=== PATIENT | female | born 1960 | race Caucasian/White ===

== ENCOUNTER 2017-02-07 11:32 | Observation (INO) | payer BC ==
[2017-02-07] MEDS ORDERED: NS 1,000 ML IV ONE (12:31)
[2017-02-07 12:40] LABS: COLOR YELLOW; LEUKOCYTE ESTERASE,URINE NEGATIVE (NEGATIVE); NITRITE,URINE NEGATIVE (NEGATIVE)
[2017-02-07] MEDS ORDERED: ONDANSETRON 4 MG/2 ML VIAL IVP ONE (12:44)
[2017-02-07] MEDS ORDERED: HYDROmorphONE/DILAUDID 1 MG/ML SYR IVP ONE ×2 (12:44→16:32)
[2017-02-07 12:46] LABS: % IMMATURE GRANULYOCYTES 0.3 % (0.0-1.1); ABSOLUTE IMMATURE GRANULOCYTES 0.02 10^3/uL (0.00-0.10); ADD DIFF? NO; ADD MORPH? NO; ADD SCAN? NO; ATYPICAL LYMPHOCYTE FLAG 10 (0-99); FRAGMENT RBC FLAG 0 (0-99); HEMATOCRIT 39.9 % (38.0-47.0); HEMOGLOBIN 13.7 g/dL (12.6-16.3); LEFT SHIFT FLG 0 (0-99); LIPEMIA HEMOLYSIS FLAG 90 (0-99); MEAN CELL HEMOGLOBIN 32.7 pg (27.9-34.1); MEAN CELL HEMOGLOBIN CONCENTR. 34.3 g/dL (32.4-36.7); MEAN CELL VOLUME 95.2 fL (81.5-99.8); MEAN PLATELET VOLUME 9.6 fL (8.7-11.7); PLATELET CLUMPS FLAG 0 (0-99); PLATELET COUNT 317 10^3/uL (150-400); RED BLOOD CELL COUNT 4.19 10^6/uL (4.18-5.33); RED CELL DISTRIBUTION WIDTH 13.2 % (11.5-15.2)
[2017-02-07 13:00] LABS: ANION GAP 10 mEq/L (8-16); CALCIUM 9.4 mg/dL (8.5-10.4); CARBON DIOXIDE 26 mEq/l (22-31); CHLORIDE 106 mEq/L (97-110); CREATININE 0.8 mg/dL (0.6-1.0); GLOMERULAR FILTRATION RATE > 60; GLUCOSE 63 mg/dL (70-100); SODIUM 142 mEq/L (134-144)
--- NOTE | 2017-02-07 13:01 | EDPHY ---
H & P Time Seen by Provider: 02/07/17 12:18 HPI/ROS: CHIEF COMPLAINT: Abdominal pain HISTORY OF PRESENT ILLNESS: 56-year-old female presents to the emergency department by private vehicle complaining of severe abdominal pain to left side of her abdomen since yesterday. She denies any known trauma or injury. She denies nausea, vomiting or diarrhea. She has never had pain like this in the past. Denies urinary symptoms. She had a normal bowel movement this morning. Denies melena or blood in her stool. Denies chest pain or difficulty breathing. REVIEW OF SYSTEMS: Constitutional: No fever, no chills. Eyes: No double or blurry vision. ENT: No sore throat. Respiratory: No cough, no shortness of breath. Cardiac: No chest pain. Gastrointestinal: Abdominal pain as above, no vomiting or diarrhea. Genitourinary: No dysuria. Musculoskeletal: No neck or back pain. Skin: No rashes. Neurological: No headache. Past Medical/Surgical History: Pancreatic insufficiency, cholecystectomy, orthopedic surgery Social History: from [place] Smoking Status: Former smoker Physical Exam: General Appearance: Alert, no distress. Afebrile. Eyes: Pupils equal and round. Extraocular motions are all intact. ENT: Mouth: Mucous membranes moist. Respiratory: No wheezing, rhonchi, or rales, lungs are clear to auscultation. Cardiovascular: Regular rate and rhythm. Gastrointestinal: Abdomen is soft. Slightly distended. Patient has tenderness with palpation in the left lower quadrant as well as in the left upper quadrant of the abdomen. There is mild rebound tenderness. No guarding. No CVA tenderness bilaterally. Neurological: Alert and oriented x 3, cranial nerves II through XII grossly intact Skin: Warm and dry, no rashes. Musculoskeletal: Nontender to palpate along the cervical, thoracic or lumbar spine. Neck is supple. Extremities: Full range of motion and no peripheral edema. Psychiatric: Patient is oriented X 3, there is no agitation. Constitutional: Initial Vital Signs Temperature (C) 36.6 C 02/07/17 11:37 Heart Rate 90 02/07/17 11:37 Respiratory Rate 16 02/07/17 11:37 Blood Pressure 107/71 02/07/17 11:37 O2 Sat (%) 96 02/07/17 11:37 O2 Delivery Mode Room Air O2 (L/minute) 2 Allergies/Adverse Reactions: No Known Allergies Allergy (Verified 02/07/17 11:40) Home Medications: Medication Instructions Recorded NK [No Known Home Meds] 02/07/17 Medical Decision Making - Diagnostics Imaging: Imaging Impressions Abdomen CT 02/07/17 13:18 Impression: 1. Epiploic appendagitis involving the descending colon near the left iliac crest. 2. No free fluid, abscess, lymphadenopathy or mass. 3. Mild biliary dilation is likely the patient's postcholecystectomy baseline. Findings discussed with Emergency Department physician, Mary Cornelius PA-C on February 07, 2017 at 1418 hours. ED Course/Re-evaluation: 56-year-old female with left-sided abdominal pain. Patient feels distension in her abdomen. No vomiting or diarrhea. No fevers or chills. I discussed the pros and cons of CT imaging of the abdomen and pelvis including radiation exposure the patient agrees. CT imaging of the abdomen and pelvis reveals and epiploic appendagitis. No evidence of perforation. The patient required IV Dilaudid initially and then she was given 30 mg of IV Toradol without relief. She was given additional IV Dilaudid. Patient continued to have ongoing abdominal pain. She will be admitted to the hospitalist. I spoke with Dr. Chetan Cabrera who was on-call for General surgery who reviewed the patient's CT scan. He did not feel that the patient required any surgical intervention. He feels that the patient can be admitted to the hospitalist if she continues to have ongoing pain for pain control. Case was discussed with Dr. Tayler Sagastume, supervising physician, who did not directly evaluate the patient but agrees with treatment and plan. Differential Diagnosis: Including but not limited to acute appendicitis, diverticulitis, perforated diverticulum, bowel obstruction, carcinoma, epiploic appendagitis - Data Points Laboratory Results: Laboratory Results 02/07/17 12:26 02/07/17 12:26 02/07/17 02/07/17 02/07/17 12:26 12:26 12:25 WBC 6.15 10^3/uL 10^3/uL (3.80-9.50) RBC 4.19 10^6/uL 10^6/uL (4.18-5.33) Hgb 13.7 g/dL g/dL (12.6-16.3) Hct 39.9 % % (38.0-47.0) MCV 95.2 fL fL (81.5-99.8) MCH 32.7 pg pg (27.9-34.1) MCHC 34.3 g/dL g/dL (32.4-36.7) RDW 13.2 % % (11.5-15.2) Plt Count 317 10^3/uL 10^3/uL (150-400) MPV 9.6 fL fL (8.7-11.7) Neut % (Auto) 49.2 % % (39.3-74.2) Lymph % (Auto) 38.0 % % (15.0-45.0) [place] % (Auto) 8.6 % % (4.5-13.0) Eos % (Auto) 2.8 % % (0.6-7.6) Baso % (Auto) 1.1 % % (0.3-1.7) Nucleat RBC Rel Count 0.0 % % (0.0-0.2) Absolute Neuts (auto) 3.02 10^3/uL 10^3/uL (1.70-6.50) Absolute Lymphs (auto) 2.34 10^3/uL 10^3/uL (1.00-3.00) Absolute Monos (auto) 0.53 10^3/uL 10^3/uL (0.30-0.80) Absolute Eos (auto) 0.17 10^3/uL 10^3/uL (0.03-0.40) Absolute Basos (auto) 0.07 10^3/uL 10^3/uL (0.02-0.10) Absolute Nucleated RBC 0.00 10^3/uL 10^3/uL (0-0.01) Immature Gran % 0.3 % % (0.0-1.1) Immature Gran # 0.02 10^3/uL 10^3/uL (0.00-0.10) Sodium 142 mEq/L mEq/L (134-144) Potassium 4.0 mEq/L mEq/L (3.5-5.2) Chloride 106 mEq/L mEq/L (97-110) Carbon Dioxide 26 mEq/l mEq/l (22-31) Anion Gap 10 mEq/L mEq/L (8-16) BUN 9 mg/dL mg/dL (7-23) Creatinine 0.8 mg/dL mg/dL (0.6-1.0) Estimated GFR > 60 Glucose 63 mg/dL L mg/dL (70-100) Calcium 9.4 mg/dL mg/dL (8.5-10.4) Urine Color YELLOW Urine Appearance HAZY Urine pH 7.0 (5.0-7.5) Ur Specific [place] 1.004 (1.002-1.030) Urine Protein NEGATIVE (NEGATIVE) Urine Ketones NEGATIVE (NEGATIVE) Urine Blood NEGATIVE (NEGATIVE) Urine Nitrate NEGATIVE (NEGATIVE) Urine Bilirubin NEGATIVE (NEGATIVE) Urine Urobilinogen NEGATIVE EU EU (0.2-1.0) Ur Leukocyte Esterase NEGATIVE (NEGATIVE) Ur Culture Indicated? NOT INDICATED (NI) Urine Glucose NEGATIVE (NEGATIVE) Medications Given: Discontinued Medications Hydromorphone HCl (Dilaudid) 0.5 mg IVP EDNOW ONE Stop: 02/07/17 12:45 Last Admin: 02/07/17 12:53 Dose: 0.5 mg Hydromorphone HCl (Dilaudid) 0.5 mg IVP EDNOW ONE Stop: 02/07/17 16:33 Last Admin: 02/07/17 16:43 Dose: 0.5 mg Sodium Chloride (Ns) 1,000 mls @ 0 mls/hr IV ONCE ONE PRN Reason: Wide Open Stop: 02/07/17 12:32 Last Admin: 02/07/17 12:32 Dose: 1,000 mls Ketorolac Tromethamine (Toradol) 30 mg IVP EDNOW ONE Stop: 02/07/17 14:41 Last Admin: 02/07/17 15:04 Dose: 30 mg Ondansetron HCl (Zofran) 4 mg IVP EDNOW ONE Stop: 02/07/17 12:45 Last Admin: 02/07/17 12:53 Dose: 4 mg Departure - Departure Disposition: [facility] Inpatient Acute Clinical Impression: Abdominal pain Qualifiers: Abdominal location: left lower quadrant Qualified Code(s): R10.32 - Left lower quadrant pain Condition: Good
[2017-02-07] MEDS ORDERED: IOPAMIDOL (ISOVUE-300) 100 ML BTL IV ONE (13:23)
[2017-02-07] MEDS ORDERED: KETOROLAC 30 MG/1 ML SDV IVP ONE (14:40)
[2017-02-07] MEDS ORDERED: ACETAMINOPHEN 325 MG TAB PO PRN (17:30)
[2017-02-07] MEDS ORDERED: ONDANSETRON DISINTEGRATING 4 MG TAB PO PRN (17:30)
[2017-02-07] MEDS ORDERED: ONDANSETRON 4 MG/2 ML VIAL IVP PRN (17:30)
[2017-02-07] MEDS ORDERED: KETOROLAC 30 MG/1 ML SDV IVP PRN (17:30)
[2017-02-07] MEDS ORDERED: HYDROmorphONE/DILAUDID 2 MG TAB ONE (18:38)
[2017-02-07] MEDS ORDERED: HYDROmorphONE/DILAUDID 1 MG/ML SYR IVP PRN (18:39)
[2017-02-07] MEDS: HYDROmorphONE/DILAUDID 2 MG TAB PO PRN (18:42)
[2017-02-07 19:07] LABS: ALBUMIN 4.1 g/dL (3.5-5.0); BILIRUBIN,TOTAL 0.5 mg/dL (0.1-1.4); BILIRUBIN-CONJUGATED 0.2 mg/dL (0.0-0.5); BILIRUBIN-UNCONJUGATED 0.3 mg/dL (0.0-1.1); TOTAL PROTEIN 7.1 g/dL (6.3-8.2)
--- NOTE | 2017-02-07 19:15 | GHP ---
[f rep st] HISTORY AND PHYSICAL DATE OF ADMISSION: 02/07/2017 CHIEF COMPLAINT: Abdominal pain. HISTORY OF PRESENT ILLNESS: The patient is a 56-year-old female, history of esophageal spasm, presenting with acute abdominal pain. She says the pain started yesterday morning, and she thought it may be related to yoga or maybe ovarian cyst. It was sharp in nature diffusely, but more on the left side. She reports increased pressure throughout the entire abdomen, and has had intermittent distention for the past month. She does have constipation intermittently, had a normal BM today. Denies fevers, chills, sweats. No nausea, vomiting, diarrhea. She was recently treated for a sinus infection with Keflex and prednisone. REVIEW OF SYSTEMS: A complete 10-point review of systems, negative except as noted in HPI. PAST MEDICAL HISTORY: Esophageal spasms. Recent sinus infection. PAST SURGICAL HISTORY: Ectopic . Finger surgery. Cholecystectomy. SOCIAL HISTORY: Lives in [place], but [place] [address]. Occasional alcohol. No tobacco or illicits. FAMILY HISTORY: Grandmother had venous thrombosis in her abdomen. Mother with diverticulitis. ALLERGIES: No known drug allergies. MEDICATIONS: Vitamins. PHYSICAL EXAM: VITAL SIGNS: Temperature 36.6, blood pressure 107/71, heart rate 80s, respiration 18, 95% on room air. GENERAL: The patient is lying in bed. Mildly guarding secondary to pain meds. No acute distress. HEENT: PERRLA. EOMI. Dry mucous membranes. CV: Regular rate and rhythm. No murmurs , gallops, or rubs. LUNGS: Clear to auscultation. ABDOMEN: Soft, mildly distended. Significant tenderness left lower quadrant with guarding. No rebound. Positive bowel sounds. : No suprapubic tenderness. MUSCULOSKELETAL: 5/5 upper and lower extremity strength. NEURO: 2 through 12 intact. PSYCH: Alert and oriented x3. LABS: WBC 6.1, hemoglobin 13, hematocrit 39, platelets 317, sodium 142, potassium 4, chloride 106, carbon dioxide 26, BUN 9, creatinine 0.8, glucose 63 , calcium 9. CT: Epiploic appendagitis involving the descending colon near the left iliac crest. No free fluid, abscess, or lymphadenopathy. Mild biliary dilatation is likely. Patient is post cholecystectomy baseline. ASSESSMENT/PLAN: 1. Acute abdominal pain secondary to epiploic appendagitis: There is no evidence of abscess or mass. Will admit for pain control, IV fluids. Dr. Cabrera reviewed imaging; no surgical intervention needed. Admit for pain control. 2. Diet: Clears, advance as tolerated. 3. Deep vein thrombosis prophylaxis: Low risk. DISPOSITION: Patient warrants inpatient admission for acute pain control. /[id number]/MODL and [id number]/MODL [facility]
[2017-02-07] MEDS: FAMOTIDINE 20 MG/NACL 50 ML IV SCH (20:41)
[2017-02-07] MEDS: NS 1,000 ML IV SCH (20:41)
[2017-02-07] MEDS ORDERED: diphenhydrAMINE 25 MG CAP PO PRN (22:21)
[2017-02-07] MEDS ORDERED: LIDOCAINE 2% VISCOUS 15 ML UDCUP PO ONE (22:22)
[2017-02-07] MEDS ORDERED: MAG HYDROX/AL HYDROX/SIMETH 30 ML UDCUP PO ONE (22:22)
[2017-02-07] MEDS ORDERED: HYOSCYAMINE SULFATE 0.125 MG TAB PO ONE (22:22)
[2017-02-07] MEDS ORDERED: HYOSCYAMINE SULFATE 0.125 MG TAB PO PRN (23:15)
[2017-02-07] MEDS ORDERED: LIDOCAINE 2% VISCOUS 15 ML UDCUP PO PRN (23:15)
[2017-02-07] MEDS ORDERED: MAG HYDROX/AL HYDROX/SIMETH 30 ML UDCUP PO PRN (23:15)
[2017-02-08] MEDS: HYDROmorphONE/DILAUDID 2 MG TAB PO PRN (02:18)
[2017-02-08] MEDS: NS 1,000 ML IV SCH (06:02)
[2017-02-08] MEDS: FAMOTIDINE 20 MG/NACL 50 ML IV SCH (08:09)
[2017-02-08 08:17] VITALS: RESP 18
[2017-02-08] MEDS ORDERED: SUMAtriptan 50 MG TAB PO ONE (08:48)
[2017-02-08] MEDS ORDERED: SUMAtriptan 25 MG TAB PO PRN (08:48)
[2017-02-08] MEDS ORDERED: Herbals/Supplements -Info Only PO SCH (09:00)
[2017-02-08 10:38] LABS: ADD DIFF? NO; ADD MORPH? NO; ADD SCAN? NO; ATYPICAL LYMPHOCYTE FLAG 10 (0-99); FRAGMENT RBC FLAG 0 (0-99); HEMATOCRIT 37.1 % (38.0-47.0); HEMOGLOBIN 12.3 g/dL (12.6-16.3); LEFT SHIFT FLG 0 (0-99); LIPEMIA HEMOLYSIS FLAG 80 (0-99); MEAN CELL HEMOGLOBIN 32.2 pg (27.9-34.1); MEAN CELL HEMOGLOBIN CONCENTR. 33.2 g/dL (32.4-36.7); MEAN CELL VOLUME 97.1 fL (81.5-99.8); MEAN PLATELET VOLUME 9.9 fL (8.7-11.7); PLATELET CLUMPS FLAG 20 (0-99); PLATELET COUNT 252 10^3/uL (150-400); RED BLOOD CELL COUNT 3.82 10^6/uL (4.18-5.33); RED CELL DISTRIBUTION WIDTH 13.3 % (11.5-15.2)
[2017-02-08 10:50] LABS: INR 1.1 (0.83-1.16); PROTIME(PATIENT) 14.1 SEC (12.0-15.0)
[2017-02-08 11:13] LABS: ANION GAP 6 mEq/L (8-16); CARBON DIOXIDE 22 mEq/l (22-31); CHLORIDE 113 mEq/L (97-110); CREATININE 0.7 mg/dL (0.6-1.0); GLOMERULAR FILTRATION RATE > 60; GLUCOSE 82 mg/dL (70-100); POTASSIUM 4.2 mEq/L (3.5-5.2); SODIUM 141 mEq/L (134-144)
--- NOTE | 2017-02-08 15:37 | PDDCSUM ---
Discharge Summary Discharge Summary: DISCHARGE SUMMARY FOLLOW-UP ITEMS: Mental health and potentially GI referral through PCP's office DATE OF ADMISSION: 02/07/2017 DATE OF DISCHARGE: 02/08/2017 DISCHARGE DIAGNOSES: 1. Acute abdominal pain 2. Epiploic appendagitis 3. Suspected irritable bowel syndrome CONSULTATIONS: [place] with General surgery PROCEDURES / IMAGING: Abdominal CT demonstrating fat necrosis in the right lower quadrant CHIEF COMPLAINT: Acute abdominal pain SUBJECTIVE: Patient is feeling well at time of discharge, she is having mild nausea PHYSICAL EXAM ON DISCHARGE: Systolic blood pressure is 120, heart rate 60, afebrile overnight, satting well on room air, abdomen is soft mildly tender to deep palpation on the left lower quadrant, bowel sounds are present, flat affect, anxious, good insight LABS ON DISCHARGE: White blood cell count 3500, hemoglobin 12.3, platelets [id number], creatinine 0.7, potassium 4.2, glucose 82, liver panel unremarkable, lipase normal HOSPITAL COURSE BY PROBLEM: 1. Acute abdominal pain. Patient presented with abdominal pain and oral intolerance, requiring supportive care with IV fluids, pain medications, antiemetics. The patient responded well to supportive care and she is currently symptom controlled. Most likely cause of her symptoms is irritable bowel syndrome which will be further discussed below. 2. Epiploic appendagitis. Patient has evidence of fat necrosis in the right lower quadrant on abdominal CT, and I have discussed this with Dr. Cabrera from General surgery. Reports that this is idiopathic and may or may not be the cause of her abdominal symptoms. She does not currently have any positive infectious markers and does not require any intervention for this issue. I also question whether this is the cause of her abdominal symptoms and I believe it may be an incidental finding. 3. Suspected irritable bowel syndrome. The patient endorses significant stressors in her life and believes that her abdominal symptoms become exacerbated with elevated stress levels. She reports that she has fluctuating levels of constipation for which she has to work diligently with stool softeners and laxatives. She does not see a provider formally for this issue but I suspect that she may have a irritable bowel syndrome component consequently I am ordering as needed Bentyl for control of her abdominal pain. She would like to control her nausea with as needed Phenergan and Zofran. I recommended that she remain diligent regarding her bowel movements and utilize laxative agents to provoke at least 1 bowel movement daily. I have also recommended that she establish primary medical care here in [facility] so that she can continue to work on this issue with a medically trained provider and also receive referral to appropriate mental health provider of her choosing as well as potential ointment mill tender if the symptoms become more pervasive. The patient has good insight into her physical symptoms as well as her connection with her stress levels and she seems amenable to receiving care. DISCHARGE MEDICATIONS: Please see official discharge medication reconciliation sheet in chart , Bentyl 10-20 mg as needed, Phenergan as needed, Zofran as needed. DISCHARGE INSTRUCTIONS: Patient should establish care with Dr. Felipe Neal.
[2017-02-08 16:22] VITALS: BP 146/94; PULSE 78; TEMP 98.5; O2SAT 97
[2017-02-08] MEDS ORDERED: FAMOTIDINE 20 MG TAB PO SCH (21:00)
== END 2017-02-08 18:41 | disposition home or self-care (01) ==
LOC: INTOOBSV 17:14 → OBSVTOIN 17:14 → F1N 18:58
PROVIDERS: ADMIT Internal Medicine; ATTEND Internal Medicine
DX: R10.32 Left lower quadrant pain (principal); K63.89 Other specified diseases of intestine; Q43.8 Other specified congenital malformations of intestine
CPT/HCPCS: 74177; 96374; 96375; 96376; 99285; G0378; J1170; J1885; J2405; Q9967

== ENCOUNTER 2017-03-27 16:57 | Emergency (ER) | payer BC ==
--- NOTE | 2017-03-27 18:02 | EDPHY ---
H & P Time Seen by Provider: 03/27/17 17:58 HPI/ROS: HPI:48-year-old female presents to emergency department with chief concern left great toe discomfort that onset this morning. Had a [place] yesterday at a resort in [facility] and a massage therapist " pulled her by her toes 1 at a time, lifting her entire leg off of the bed." had minimal pain at that time, pain increased over the night, awoke with difficulty ambulating. No fever, chills, skin trauma, nausea, vomiting, other joint swelling or pain. No personal or family history of gout.Does not tolerate NSAIDs. Brought tramadol at the airport in [place] and has been using with some improvement. ROS:10 point review of systems is negative other than as stated in HPI Smoking Status: Former smoker Physical Exam: Vital signs stable, reviewed by me General: Awake, alert, calm, cooperative. No acute distress. Head: Normalocephalic. Atraumatic. EENT: PERRLA. EOMI. Neck: Supple, nontender. No midline tenderness, full ROM. Respiratory: Breathing unlabored. CV: Chest nontender, atraumatic. Distal pulses 2+. Brisk cap refill all extremities. GI: Deferred Neuro: Alert. Oriented x 3. Sensation intact all extremities. Skin: Skin warm, dry, intact. No ecchymosis, abrasions, or lacerations. Extremities: No discomfort to palpation of the left hip, knee, leg, ankle. Full ROM. bunions present bilaterally to the medial 1st MTPJ days. Discomfort with mild swelling and without significant warmth of the left 1st MTPJ. No discomfort of the proximal or distal phalanx of the left great toe. Full range of motion. Constitutional: Initial Vital Signs Temperature (C) 36.9 C 03/27/17 17:00 Heart Rate 72 03/27/17 17:00 Respiratory Rate 18 03/27/17 17:00 Blood Pressure 120/80 03/27/17 17:00 O2 Sat (%) 99 03/27/17 17:00 O2 Delivery Mode Room Air Allergies/Adverse Reactions: No Known Allergies Allergy (Verified 03/27/17 17:00) Home Medications: Medication Instructions Recorded Tramadol HCl 50 mg PO 12 #0 tablet 03/27/17 traMADol [Ultram 50 mg (*)] 50 mg PO Q4 03/27/17 Medical Decision Making - Diagnostics Imaging Results: Imaging Impressions Toe X-Ray 03/27/17 17:07 Impression: Moderate left first MTP joint osteoarthritis, otherwise negative. ED Course/Re-evaluation: 56-year-old female presents to emergency department with discomfort of the MTPJ of the left the great toe. Onset after a massage where the massage therapist manipulated her toes, lifting her entire leg off the bed. Awoke with difficulty ambulating. Afebrile. No other joint pain. No joint erythema , swelling, or warmth. While gout is in the differential, she has no personal or family history of gout. The MTPJ is not significantly warm. Swelling and erythema are minimal. X-ray significant for osteoarthritis. She will continue using Tylenol and tramadol, and follow up with primary care for recheck. Given postop shoe and crutches as she has difficulty ambulating. Neurovascular status intact after application of postop shoe. Differential Diagnosis: Differential diagnosis includes but is not limited to musculoskeletal strain, gout, osteoarthritis, septic joint Departure - Departure Disposition: Home, Routine, Self-Care Clinical Impression: Toe pain, left Osteoarthritis Qualifiers: Osteoarthritis type: post-traumatic Laterality: left Condition: Good Instructions: Osteoarthritis (ED) Additional Instructions: Plan: Tylenol 650 mg every 8 hours as needed May continue to use tramadol as you were at home--50 mg every 6-8 hours as needed, may cut this in half Follow up with your primary care provider in the next 1-2 days for recheck without fail--When you call to schedule appointment, please let the office know you are an "ER follow up" appointment" Referrals: Felipe Neal MD [Primary Care Provider] - As per Instructions Prescriptions: Tramadol HCl 50 mg PO 12 #0 tablet
[2017-03-27 19:00] VITALS: BP 118/76; PULSE 76; RESP 17; TEMP 98.8; O2SAT 95
== END 2017-03-27 18:59 | disposition home or self-care (01) ==
DX: M19.172 Post-traumatic osteoarthritis, left ankle and foot (principal); Z87.891 Personal history of nicotine dependence
CPT/HCPCS: L3260

== ENCOUNTER → 2017-08-12 | Outpatient (CLI) | payer BC | LOC: FIMAGING 08:50 | PROVIDERS: ATTEND Physician Assistant | DX: G43.909 Migraine, unspecified, not intractable, without status migrainosus (principal) ==

== ENCOUNTER 2017-10-28 09:47 | Emergency (ER) | payer BC ==
[2017-10-28 09:56] VITALS: BP 102/68; PULSE 80; RESP 16; TEMP 98.6; O2SAT 94
--- NOTE | 2017-10-28 10:34 | EDPHY ---
H & P Smoking Status: Former smoker Time Seen by Provider: 10/28/17 10:26 HPI/ROS: CHIEF COMPLAINT: Right knee pain HISTORY OF PRESENT ILLNESS: 57-year-old female complaining of right anterior and prepatellar knee pain which started after she was moving her daughter out of her apartment in [facility] 3 days ago and felt pain at that time. She is able to bear weight albeit with pain in the prepatellar space. No instability. No direct trauma or fall. PHYSICAL EXAM (Prior to examination, patient consented to physical exam, hands were washed and my usual and customary physical exam procedures followed) 1) GENERAL: Well-developed, well-nourished, alert and oriented. Appears to be in no acute distress. 2) HEAD: Normocephalic 3) HEENT: Pupils equal, round, reactive to light bilaterally. 4) LUNGS: Breathing comfortably. 5) MUSCULOSKELETAL: Exam of the right knee shows normal coloration, normal temperature, mild tenderness to palpation prepatellar space with no evidence of bursitis. . Compartments are soft. 6) SKIN: Intact no discoloration. 7) VASCULAR: DP,PT pulses and cap refill present and brisk distally DIFFERENTIAL DIAGNOSIS: in no particular order including but not limited to fracture, sprain, compartment syndrome, septic arthritis, DVT MEDICAL DECISION MAKING Serial evaluations performed on patient. I discussed the limitations of x-ray in diagnosis of knee pain and injury. At this time I do not think that emergent MRI is currently indicated. However, I have recommended follow-up with Orthopedic surgery and provided this referral information. Informed the patient that outpatient MRI may be indicated. Doubt septic arthritis. Doubt compartment syndrome. Doubt DVT. (Carlos Cardona) Constitutional: Initial Vital Signs Temperature (C) 37 C 10/28/17 09:51 Heart Rate 80 10/28/17 09:51 Respiratory Rate 16 10/28/17 09:51 Blood Pressure 102/68 10/28/17 09:51 O2 Sat (%) 94 10/28/17 09:51 O2 Delivery Mode Room Air Allergies/Adverse Reactions: No Known Allergies Allergy (Verified 03/27/17 17:00) Home Medications: Medication Instructions Recorded NK [No Known Home Meds] 10/28/17 MDM/Departure - MDM ED Course/Re-evaluation: I did not see this patient while she was in the emergency department. However her care was discussed with the PA while the patient was in the department. I agree with treatment plan and management. I a.m. the secondary supervising physician (Myles Knight) - Depart Disposition: Home, Routine, Self-Care Clinical Impression: Right anterior knee pain Condition: Good Instructions: Knee Pain (ED) Additional Instructions: Return to the ER immediately if you experience discoloration, have worsening pain, numbness, tingling, or any other symptoms that concern you. If you received x-rays in the emergency department today, be advised, that ligamentous , tendon, muscular, and other non-bony injury cannot be fully ruled out. Try to keep your affected extremity elevated above the level of your chest, and keep cold packs on the affected area, for the next 48 hours. Referrals: Irving Garcia MD [Medical Doctor] - 2-3 days, call for appt. (Dr. Irving Garcia is an orthopedic doctor)
== END 2017-10-28 11:15 | disposition home or self-care (01) ==
DX: M25.561 Pain in right knee (principal); Z87.891 Personal history of nicotine dependence

== ENCOUNTER 2018-05-10 10:29 | Emergency (ER) | payer BC ==
[2018-05-10 11:11] LABS: PLATELET COUNT 284 10^3/uL (150-400)
[2018-05-10] MEDS ORDERED: ONDANSETRON 4 MG/2 ML VIAL ONE (11:14)
--- NOTE | 2018-05-10 11:17 | EDPHY ---
H & P Stated Complaint: bladder pain Time Seen by Provider: 05/10/18 11:06 HPI/ROS: CHIEF COMPLAINT: Suprapubic and left lower quadrant abdominal pain x4 days HISTORY OF PRESENT ILLNESS: 57-year-old female seen by her PCP 4 days ago diagnosed with UTI started on Bactrim, which she is still taking, complaining suprapubic and new left lower quadrant pain the past 24 hr. No nausea or vomiting. Bowel movements normal with no melena or hematochezia. She last ate breakfast this 7:30 a.m. and tolerated this well. No fever or chills. No flu- like symptoms. No back or flank pain PRIMARY CARE PROVIDER: Dr. Ana Bauman REVIEW OF SYSTEMS: A ten point review of systems was performed and is negative with the exception of the items mentioned in the HPI PAST MEDICAL & SURGICAL HISTORY: Cholecystectomy. Otherwise no abdominal surgeries. Prior history of epiploic appendagitis and suspected irritable bowel syndrome. SOCIAL HISTORY: Nonsmoker PHYSICAL EXAM (Prior to examination, patient consented to physical exam, hands were washed and my usual and customary physical exam procedures followed) 1) GENERAL: Well-developed, well-nourished, alert and oriented. Appears to be in no acute distress. Smiling shakes my hand 2) HEAD: Normocephalic, atraumatic 3) HEENT: Pupils equal, round, reactive to light bilaterally. Sclera anicteric. Nasopharynx, oropharynx, clear, no lesions. Moist mucous membrane 4) NECK: Full range of motion, no meningeal signs. 5) LUNGS: Clear auscultation bilaterally, no wheezes, no rhonchi, no retractions. 6) HEART: Regular rate and rhythm, no murmur, no heave, no gallop. 7) ABDOMEN: No guarding, acutely tender to palpation suprapubic and left lower quadrant region. negative McBurney's, negative Gomes's, negative negative peritoneal sign, 8) MUSCULOSKELETAL: Moving all extremities, no focal areas of tenderness, no obvious trauma. No peripheral edema or discoloration. 9) BACK: No CVA tenderness, no midline vertebral tenderness, no fluctuance, no step-off, no obvious trauma, no visual or palpable abnormality. 10) SKIN: No rash, no petechiae. 11) Psychiatric: Patient is oriented X 3, there is no agitation. DIFFERENTIAL DIAGNOSIS: My differential diagnosis includes, but is not limited to, acute appendicitis, acute cholecystitis, bowel obstruction, acute pancreatitis, ovarian torsion, diverticulitis, gastritis and urinary tract infection. The patient understands that this diagnosis is provisional and can never be 100% accurate. This is a partial list of diagnoses considered. These considerations are based on history, physical exam, past history and reassessment. - Personal History Current Tetanus/Diphtheria Vaccine: Yes Current Tetanus Diphtheria and Acellular Pertussis (TDAP): Yes - Medical/Surgical History Hx Asthma: No Hx Chronic Respiratory Disease: No Hx Diabetes: No Hx Cardiac Disease: No Hx Renal Disease: No Hx Cirrhosis: No Hx Alcoholism: No Hx HIV/AIDS: No Hx Splenectomy or Spleen Trauma: No Other PMH: pancreatic insuffiency, left hand/finger surgery, cholecestectomy, esophageal spasms, ectopic , ovarian cyst - Social History Smoking Status: Former smoker Constitutional: Initial Vital Signs Temperature (C) 36.8 C 05/10/18 10:33 Heart Rate 84 05/10/18 10:33 Respiratory Rate 16 05/10/18 10:33 Blood Pressure 103/65 05/10/18 10:33 O2 Sat (%) 97 05/10/18 10:33 O2 Delivery Mode Room Air Allergies/Adverse Reactions: No Known Allergies Allergy (Verified 05/10/18 10:32) Home Medications: Medication Instructions Recorded Bactrim DS 05/10/18 Estrogens, Conjugated 05/10/18 Herbals/Supplements -Info Only 05/10/18 Hydrocodone/APAP 5/325 [Irma 1 tab PO Q6 PRN #7 tab 05/10/18 5/325 (RX)] Phenazopyridine HCl [Pyridium] 200 mg PO TID #6 tab 05/10/18 Medical Decision Making - Diagnostics Imaging Results: Imaging Impressions Abdomen CT 05/10/18 11:14 Impression: 1. No definite acute abdominal or pelvic abnormality. 2. Distended urinary bladder. 3. Slight increase in intrahepatic biliary ductal dilatation. 4. Mildly dilated small bowel loops in the upper abdomen; are there findings to suggest enteritis? 5. See above report for additional findings. Results called and discussed with Jerson Cardona PA-C, on May 10, 2018 at 1342. Pelvic/Renal Ultrasound 05/10/18 11:14 Impression: Top normal endometrial thickness. No acute sonographic abnormality. Images reviewed myself ED Course/Re-evaluation: 11:16 a.m.: I have evaluated the patient, she is acutely tender to palpation in the suprapubic and left lower quadrant region. We discussed possible pathologies including but not limited to ovarian pathology, diverticulitis. I recommended laboratory studies, ultrasound, CT scan. She agrees with this plan. I saw this patient independently based on established practice protocols. Care of patient under supervision of secondary supervising physician Dr Jerson Sung with whom I discussed case. 2:20 p.m.: Re-evaluation, discussed her imaging results showing by enlarged normal abdominal study with the exception of distended bladder. Postvoid residual is 250 cc of urine. The presence of recent cystitis which he is currently being treated for, suspected the patient's abdominal pain may be secondary to acute urinary retention. Funes catheter will be placed, she will be started on Pyridium will need follow-up with her PCP tomorrow or with Urology at [facility] Dr. Ernie Jacobs or with her PCP Dr. Ana Bauman. - Data Points Laboratory Results: Laboratory Results 05/10/18 11:00 05/10/18 11:00 05/10/18 05/10/18 05/10/18 11:00 11:00 10:45 WBC 5.81 10^3/uL 10^3/uL (3.80-9.50) RBC 4.37 10^6/uL 10^6/uL (4.18-5.33) Hgb 14.0 g/dL g/dL (12.6-16.3) Hct 42.2 % % (38.0-47.0) MCV 96.6 fL fL (81.5-99.8) MCH 32.0 pg pg (27.9-34.1) MCHC 33.2 g/dL g/dL (32.4-36.7) RDW 12.3 % % (11.5-15.2) Plt Count 284 10^3/uL 10^3/uL (150-400) MPV 9.2 fL fL (8.7-11.7) Neut % (Auto) 55.4 % % (39.3-74.2) Lymph % (Auto) 30.6 % % (15.0-45.0) [place] % (Auto) 10.0 % % (4.5-13.0) Eos % (Auto) 2.6 % % (0.6-7.6) Baso % (Auto) 1.2 % % (0.3-1.7) Nucleat RBC Rel Count 0.0 % % (0.0-0.2) Absolute Neuts (auto) 3.22 10^3/uL 10^3/uL (1.70-6.50) Absolute Lymphs (auto) 1.78 10^3/uL 10^3/uL (1.00-3.00) Absolute Monos (auto) 0.58 10^3/uL 10^3/uL (0.30-0.80) Absolute Eos (auto) 0.15 10^3/uL 10^3/uL (0.03-0.40) Absolute Basos (auto) 0.07 10^3/uL 10^3/uL (0.02-0.10) Absolute Nucleated RBC 0.00 10^3/uL 10^3/uL (0-0.01) Immature Gran % 0.2 % % (0.0-1.1) Immature Gran # 0.01 10^3/uL 10^3/uL (0.00-0.10) Sodium 136 mEq/L mEq/L (135-145) Potassium 4.0 mEq/L mEq/L (3.3-5.0) Chloride 103 mEq/L mEq/L (97-110) Carbon Dioxide 24 mEq/l mEq/l (22-31) Anion Gap 9 mEq/L mEq/L (8-16) BUN 15 mg/dL mg/dL (7-23) Creatinine 0.9 mg/dL mg/dL (0.6-1.0) Estimated GFR > 60 Glucose 64 mg/dL L mg/dL (70-100) Calcium 9.7 mg/dL mg/dL (8.5-10.4) Total Bilirubin 0.4 mg/dL mg/dL (0.1-1.4) Conjugated Bilirubin 0.3 mg/dL mg/dL (0.0-0.5) Unconjugated Bilirubin 0.1 mg/dL mg/dL (0.0-1.1) AST 24 IU/L IU/L (14-46) ALT 21 IU/L IU/L (9-52) Alkaline Phosphatase 50 IU/L IU/L (38-126) Total Protein 7.3 g/dL g/dL (6.3-8.2) Albumin 4.4 g/dL g/dL (3.5-5.0) Lipase 154 IU/L IU/L (23-300) Urine Color Urine Appearance Urine pH Ur Specific [place] Urine Protein Urine Ketones Urine Blood Urine Nitrate Urine Bilirubin Urine Urobilinogen Ur Leukocyte Esterase Urine RBC 1-3 /hpf /hpf (0-3) Urine WBC 0-1 /hpf /hpf (0-3) Ur Epithelial Cells 1+ /lpf /lpf (NONE-1+) Urine Bacteria 1+ /hpf H /hpf (NONE SEEN) Urine Glucose 05/10/18 10:45 WBC RBC Hgb Hct MCV MCH MCHC RDW Plt Count MPV Neut % (Auto) Lymph % (Auto) [place] % (Auto) Eos % (Auto) Baso % (Auto) Nucleat RBC Rel Count Absolute Neuts (auto) Absolute Lymphs (auto) Absolute Monos (auto) Absolute Eos (auto) Absolute Basos (auto) Absolute Nucleated RBC Immature Gran % Immature Gran # Sodium Potassium Chloride Carbon Dioxide Anion Gap BUN Creatinine Estimated GFR Glucose Calcium Total Bilirubin Conjugated Bilirubin Unconjugated Bilirubin AST ALT Alkaline Phosphatase Total Protein Albumin Lipase Urine Color YELLOW Urine Appearance CLEAR Urine pH 5.0 (5.0-7.5) Ur Specific [place] 1.005 (1.002-1.030) Urine Protein NEGATIVE (NEGATIVE) Urine Ketones TRACE H (NEGATIVE) Urine Blood NEGATIVE (NEGATIVE) Urine Nitrate NEGATIVE (NEGATIVE) Urine Bilirubin NEGATIVE (NEGATIVE) Urine Urobilinogen NEGATIVE EU EU (0.2-1.0) Ur Leukocyte Esterase NEGATIVE (NEGATIVE) Urine RBC Urine WBC Ur Epithelial Cells Urine Bacteria Urine Glucose NEGATIVE (NEGATIVE) Medications Given: Discontinued Medications Morphine Sulfate (Morphine) 4 mg IVP EDNOW ONE Stop: 05/10/18 11:20 Last Admin: 05/10/18 11:21 Dose: 4 mg Morphine Sulfate (Morphine) 4 mg IVP EDNOW ONE Stop: 05/10/18 13:15 Last Admin: 05/10/18 13:22 Dose: 4 mg Ondansetron HCl (Zofran) 4 mg IVP EDNOW ONE Stop: 05/10/18 11:21 Last Admin: 05/10/18 11:20 Dose: 4 mg Phenazopyridine HCl (Pyridium) 200 mg PO EDNOW ONE Stop: 05/10/18 14:24 Last Admin: 05/10/18 14:28 Dose: 200 mg Departure - Departure Disposition: Home, Routine, Self-Care Clinical Impression: Urinary retention Abdominal pain Qualifiers: Abdominal location: left lower quadrant Qualified Code(s): R10.32 - Left lower quadrant pain Condition: Good Instructions: Acute Abdominal Pain (ED), Acute Urinary Retention in Women (ED) Additional Instructions: Seek immediate medical attention if you develop new or worsening symptoms, if you develop fevers, chills, inability to tolerate oral intake or any other symptoms that concerns you. Referrals: Ana Bauman MD [Primary Care Provider] - 1 day without fail Ernie Jacobs MD [Medical Doctor] - 1 day without fail Prescriptions: Hydrocodone/APAP 5/325 [Irma 5/325 (RX)] 1 tab PO Q6 PRN #7 tab PRN Reason: Pain, Severe Phenazopyridine HCl [Pyridium] 200 mg PO TID #6 tab
[2018-05-10] MEDS ORDERED: ONDANSETRON 4 MG/2 ML VIAL IVP ONE (11:20)
[2018-05-10] MEDS ORDERED: IOPAMIDOL (ISOVUE-300) 100 ML BTL ONE (11:34)
[2018-05-10] MEDS ORDERED: PHENAZOPYRIDINE HCL 200 MG TAB PO ONE (14:23)
[2018-05-10] MEDS ORDERED: LIDOCAINE 2% JELLY 20 ML (UROJECT) ONE (14:30)
[2018-05-10 15:01] VITALS: BP 101/65
== END 2018-05-10 15:28 | disposition home or self-care (01) ==
PROC: 0T9B70Z Drainage of Bladder with Drainage Device, Via Natural or Artificial Opening (ICD-10-PCS; principal; 2018-05-10)
DX: R10.32 Left lower quadrant pain (principal); R33.9 Retention of urine, unspecified; Z87.891 Personal history of nicotine dependence; Z90.49 Acquired absence of other specified parts of digestive tract
CPT/HCPCS: 96374; J2270; J2405; Q9967

== ENCOUNTER 2018-05-12 15:32 | Emergency (ER) | payer BC ==
--- NOTE | 2018-05-12 15:52 | EDPHY ---
H & P Stated Complaint: here 2 days ago;dickerson removed @[facility] yesterday;can't void Time Seen by Provider: 05/12/18 15:42 HPI/ROS: CHIEF COMPLAINT: "I cant urinate" HISTORY OF PRESENT ILLNESS: 57-year-old female seen by myself in the ER 2 days ago for or abdominal pain noted to have distended bladder on ultrasound and was noted to have urinary retention. At time she was being treated for cystitis. Dickerson catheter placed, she was seen at [facility] yesterday (Monday), Dickerson catheter was removed. She has been able to urinate spontaneously until this afternoon when she was experiencing urinary fullness but was unable to urinate. No back or flank pain. No fever chills. No nausea or vomiting. REVIEW OF SYSTEMS: A ten point review of systems was performed and is negative with the exception of the items mentioned in the HPI PAST MEDICAL & SURGICAL HISTORY: Recent UTI which grew pansensitive E coli. Cholecystectomy. Epiploic appendagitis history ap rritable bowel syndrome history. SOCIAL HISTORY: Nonsmoker PHYSICAL EXAM (Prior to examination, patient consented to physical exam, hands were washed and my usual and customary physical exam procedures followed) 1) GENERAL: Well-developed, well-nourished, alert and oriented. Appears to be in no acute distress. Smiling, shakes my hand 2) HEAD: Normocephalic, atraumatic 3) HEENT: Pupils equal, round, reactive to light bilaterally. Sclera anicteric. Nasopharynx, oropharynx, clear, no lesions. Moist mucous membranes 4) NECK: Full range of motion, no meningeal signs. 5) LUNGS: Clear auscultation bilaterally, no wheezes, no rhonchi, no retractions. 6) HEART: Regular rate and rhythm, no murmur, no heave, no gallop. 7) ABDOMEN: No guarding, no rebound, no focal tenderness, negative McBurney's, negative Gomes's, negative Rovsing's, negative peritoneal sign, 8) MUSCULOSKELETAL: Moving all extremities, no focal areas of tenderness, no obvious trauma. No peripheral edema or discoloration. 9) BACK: No CVA tenderness 10) SKIN: No rash, no petechiae. 11) Psychiatric: Patient is oriented X 3, there is no agitation. DIFFERENTIAL DIAGNOSIS: In no particular order including but not limited to cystitis, pyelonephritis, bladder spasm - Personal History Current Tetanus Diphtheria and Acellular Pertussis (TDAP): Yes - Medical/Surgical History Hx Asthma: No Hx Chronic Respiratory Disease: No Hx Diabetes: No Hx Cardiac Disease: No Hx Renal Disease: No Hx Cirrhosis: No Hx Alcoholism: No Hx HIV/AIDS: No Hx Splenectomy or Spleen Trauma: No Other PMH: pancreatic insuffiency, left hand/finger surgery, cholecestectomy, esophageal spasms, ectopic , ovarian cyst - Social History Smoking Status: Former smoker Constitutional: Initial Vital Signs Temperature (C) 36.8 C 05/12/18 15:33 Heart Rate 77 05/12/18 15:33 Respiratory Rate 18 05/12/18 15:33 Blood Pressure 102/70 05/12/18 15:33 O2 Sat (%) 96 05/12/18 15:33 O2 Delivery Mode Room Air Allergies/Adverse Reactions: No Known Allergies Allergy (Verified 05/12/18 15:33) Home Medications: Medication Instructions Recorded Estrogens, Conjugated 05/10/18 Phenazopyridine HCl [Pyridium] 200 mg PO TID #6 tab 05/10/18 Medical Decision Making ED Course/Re-evaluation: 450p.m.: Patient was able to spontaneously urinate in the emergency department. Last dose of Bactrim DS was last evening. Urinalysis is negative. At this time I do not think that Dickerson catheterization is indicated. I do not think that further antibiotics indicated. Recommend continued Pyridium suspect bladder spasm as etiology of her symptoms. I do not think that further diagnostic studies are indicated from the emergency department. She feels comfortable being discharged. I saw this patient independently based on established practice protocols. Care of patient under supervision of secondary supervising physician Dr Manley with whom I discussed case. - Data Points Laboratory Results: 05/12/18 16:00 Urine Color YELLOW Urine Appearance HAZY Urine pH 6.0 (5.0-7.5) Ur Specific [place] 1.003 (1.002-1.030) Urine Protein NEGATIVE (NEGATIVE) Urine Ketones NEGATIVE (NEGATIVE) Urine Blood NEGATIVE (NEGATIVE) Urine Nitrate NEGATIVE (NEGATIVE) Urine Bilirubin NEGATIVE (NEGATIVE) Urine Urobilinogen NEGATIVE EU EU (0.2-1.0) Ur Leukocyte Esterase NEGATIVE (NEGATIVE) Urine RBC Pending Urine WBC Pending Ur Epithelial Cells Pending Urine Glucose NEGATIVE (NEGATIVE) Departure - Departure Disposition: Home, Routine, Self-Care Clinical Impression: Cystitis Condition: Good Instructions: Urinary Tract Infection in Women (ED) Additional Instructions: Keep taking your Pyridium medication as directed previously. Return to the ER if you develop fever chills nausea vomiting or any other symptoms that concern you. Referrals: Natalie Kiran PAC [Physician [facility] Out] - 05/14/18
[2018-05-12 16:56] VITALS: BP 108/77
== END 2018-05-12 16:56 | disposition home or self-care (01) ==
DX: N30.90 Cystitis, unspecified without hematuria (principal); B96.89 Other specified bacterial agents as the cause of diseases classified elsewhere; Z87.891 Personal history of nicotine dependence; Z90.49 Acquired absence of other specified parts of digestive tract

== ENCOUNTER → 2018-05-15 | Outpatient (CLI) | payer BC | LOC: FIMAGING 10:25 | PROVIDERS: ATTEND Family Medicine | DX: Z12.31 Encounter for screening mammogram for malignant neoplasm of breast (principal); R92.8 Other abnormal and inconclusive findings on diagnostic imaging of breast; Z13.820 Encounter for screening for osteoporosis; M81.0 Age-related osteoporosis without current pathological fracture; Z78.0 Asymptomatic menopausal state ==

== ENCOUNTER 2018-07-04 00:36 | Emergency (ER) | payer BC ==
[2018-07-04] MEDS ORDERED: NS 1,000 ML IV ONE (01:37)
[2018-07-04 01:49] LABS: PLATELET COUNT 306 10^3/uL (150-400)
[2018-07-04] MEDS ORDERED: HYDROmorphONE/DILAUDID 2 MG/ML INJ IVP ONE ×2 (02:11→04:15)
[2018-07-04] MEDS ORDERED: KETOROLAC 15 MG/1 ML SDV IVP ONE (02:11)
--- NOTE | 2018-07-04 02:23 | EDPHY ---
H & P Stated Complaint: lower back pain and bilateral leg pain since 1300 Time Seen by Provider: 07/04/18 02:09 HPI/ROS: HPI The patient presents with pain which began in her sacrum and now is radiating to her right thigh. She describes it as a severe achy pain that seems to be coming from the bones. Earlier in the day at about 2:00 p.m. She had her 1st injection of Reclast for osteoporosis. The pain began several hours after the injection and has been continuous. She took oxycodone with some improvement in the pain. However now the pain has returned. She denies any direct trauma, redness or swelling of her legs. REVIEW OF SYSTEMS Constitutional: No fever, no chills. Eyes: No discharge. ENT: No sore throat. Cardiovascular: No chest pain, no palpitations. Respiratory: No cough, no shortness of breath. Gastrointestinal: No abdominal pain, no vomiting. Genitourinary: No hematuria. Musculoskeletal: No back pain. Skin: No rashes. Neurological: No headache. PMHx: Osteoporosis Soc Hx: Here with her daughter PHYSICAL General Appearance: Alert, uncomfortable appearing Eyes: Pupils equal and round no pallor or injection ENT, Mouth: Mucous membranes moist Respiratory: There are no retractions, lungs are clear to auscultation Cardiovascular: Regular rate and rhythm Gastrointestinal: Abdomen is soft and non-tender, no masses, bowel sounds normal Neurological: A&O, moves all extremities Skin: Warm and dry, no rashes Musculoskeletal: Neck is supple non tender Extremities: symmetrical, full range of motion Psychiatric: Patient is oriented X 3, there is no agitation Source: Patient Exam Limitations: No limitations - Personal History Current Tetanus/Diphtheria Vaccine: Yes - Medical/Surgical History Hx Asthma: No Hx Chronic Respiratory Disease: No Hx Diabetes: No Hx Cardiac Disease: No Hx Renal Disease: No Hx Cirrhosis: No Hx Alcoholism: No Hx HIV/AIDS: No Hx Splenectomy or Spleen Trauma: No Other PMH: pancreatic insuffiency, left hand/finger surgery, cholecestectomy, esophageal spasms, ectopic , ovarian cyst, orsteoporosis - Social History Smoking Status: Former smoker Constitutional: Initial Vital Signs Temperature (C) 37.1 C 07/04/18 00:40 Heart Rate 88 07/04/18 00:40 Respiratory Rate 18 07/04/18 00:40 Blood Pressure 113/78 08/29/18 00:40 O2 Sat (%) 100 07/04/18 00:40 O2 Delivery Mode Room Air O2 (L/minute) 2 Allergies/Adverse Reactions: No Known Allergies Allergy (Verified 07/04/18 00:43) Home Medications: Medication Instructions Recorded Estrogens, Conjugated 05/10/18 Medical Decision Making Differential Diagnosis: 58-year-old female who is osteoporosis and had an injection of Reclast this afternoon presents with severe pain in her sacrum and right thigh. On exam, she has no tenderness, she has no neurologic deficits, she has no injuries. I do suspect she is suffering from bone pain and arthralgias from the injection as this is a known side effect. I will treat her here with pain medication. Basic labs have been checked and they are unremarkable. - Data Points Laboratory Results: Laboratory Results 07/04/18 01:40 07/04/18 01:40 07/04/18 07/04/18 01:40 01:40 WBC 8.70 10^3/uL 10^3/uL (3.80-9.50) RBC 3.64 10^6/uL L 10^6/uL (4.18-5.33) Hgb 11.8 g/dL L g/dL (12.6-16.3) Hct 34.2 % L % (38.0-47.0) MCV 94.0 fL fL (81.5-99.8) MCH 32.4 pg pg (27.9-34.1) MCHC 34.5 g/dL g/dL (32.4-36.7) RDW 11.9 % % (11.5-15.2) Plt Count 306 10^3/uL 10^3/uL (150-400) MPV 9.2 fL fL (8.7-11.7) Neut % (Auto) 83.9 % H % (39.3-74.2) Lymph % (Auto) 9.1 % L % (15.0-45.0) [place] % (Auto) 5.2 % % (4.5-13.0) Eos % (Auto) 1.1 % % (0.6-7.6) Baso % (Auto) 0.5 % % (0.3-1.7) Nucleat RBC Rel Count 0.0 % % (0.0-0.2) Absolute Neuts (auto) 7.30 10^3/uL H 10^3/uL (1.70-6.50) Absolute Lymphs (auto) 0.79 10^3/uL L 10^3/uL (1.00-3.00) Absolute Monos (auto) 0.45 10^3/uL 10^3/uL (0.30-0.80) Absolute Eos (auto) 0.10 10^3/uL 10^3/uL (0.03-0.40) Absolute Basos (auto) 0.04 10^3/uL 10^3/uL (0.02-0.10) Absolute Nucleated RBC 0.00 10^3/uL 10^3/uL (0-0.01) Immature Gran % 0.2 % % (0.0-1.1) Immature Gran # 0.02 10^3/uL 10^3/uL (0.00-0.10) Sodium 133 mEq/L L mEq/L (135-145) Potassium 3.9 mEq/L mEq/L (3.3-5.0) Chloride 101 mEq/L mEq/L (97-110) Carbon Dioxide 20 mEq/l L mEq/l (22-31) Anion Gap 12 mEq/L mEq/L (8-16) BUN 12 mg/dL mg/dL (7-23) Creatinine 0.5 mg/dL L mg/dL (0.6-1.0) Estimated GFR > 60 Glucose 126 mg/dL H mg/dL (70-100) Calcium 8.9 mg/dL mg/dL (8.5-10.4) Medications Given: Discontinued Medications Hydromorphone HCl (Dilaudid) 0.5 mg IVP EDNOW ONE Stop: 07/04/18 02:12 Last Admin: 07/04/18 02:22 Dose: 0.5 mg Sodium Chloride (Ns) 1,000 mls @ 0 mls/hr IV EDNOW ONE; Wide Open PRN Reason: Protocol Stop: 07/04/18 01:38 Last Admin: 07/04/18 01:39 Dose: 1,000 mls Ketorolac Tromethamine (Toradol) 15 mg IVP EDNOW ONE Stop: 07/04/18 02:12 Last Admin: 07/04/18 02:23 Dose: 15 mg Departure - Departure Disposition: Home, Routine, Self-Care Clinical Impression: Ostealgia Condition: Good Instructions: Arthralgia (ED) Additional Instructions: I recommend that you take the [place] 1-2 tabs every 4-6 hours as needed for pain and please follow-up with your treating doctor tomorrow. Referrals: Ana Bauman MD [Primary Care Provider] - As per Instructions
[2018-07-04] MEDS ORDERED: HYDROCOD/APAP 5/325 PREPACK#6 BTL TAKEHOME ONE (03:35)
[2018-07-04 05:40] VITALS: BP 100/58
== END 2018-07-04 05:40 | disposition home or self-care (01) ==
DX: M81.0 Age-related osteoporosis without current pathological fracture (principal); Z87.891 Personal history of nicotine dependence
CPT/HCPCS: 96374; J1170; J1885

== ENCOUNTER 2018-10-29 19:46 | Emergency (ER) | payer BC ==
[2018-10-29 19:52] VITALS: BP 117/80
--- NOTE | 2018-10-29 19:53 | EDPHY ---
H & P Time Seen by Provider: 10/29/18 19:52 HPI/ROS: CHIEF COMPLAINT: Left ankle injury HISTORY OF PRESENT ILLNESS: 58-year-old female arrives via private vehicle complaining of acute left ankle and foot pain after she rolled her foot this evening while wearing high heels. Unable to bear weight secondary to pain. No fall from height. No calcaneus pain. No paresthesia. No proximal tibia or fibula pain. PHYSICAL EXAM (Prior to examination, patient consented to physical exam, hands were washed and my usual and customary physical exam procedures followed) 1) GENERAL: Well-developed, well-nourished, alert and oriented. 2) HEAD: Normocephalic 3) HEENT: Pupils equal, round, reactive to light bilaterally. 4) LUNGS: Breathing comfortably. 5) MUSCULOSKELETAL: Tender to palpation lateral malleolus. No tenting of skin. Tender to palpation 5th metatarsal and dorsal midfoot. proximal tibia and fibula nontender . negative Dale test, compartments soft 6) SKIN: Intact 7) VASCULAR: DP,PT pulses and cap refill present and brisk DIFFERENTIAL DIAGNOSIS: in no particular order including but not limited to fracture, sprain, compartment syndrome Procedure: Crutches indications for crutch use discussed with patient. Patient fitted for crutches by ER staff. Observed ambulating with crutches. I think the patient has the capacity to safely use crutches. Usual and customary crutch walking precautions provided Procedure: Splint A jose alfredo boot splint was applied by ER stage technician. After application of the splint I returned and re-examined the patient. The splint was adequately immobilizing the joint and distal to the splint the patient's circulation and sensation were intact. Patient shows no signs of compartment syndrome. Was given orthopedic precautions. - Medical/Surgical History Hx Asthma: No Hx Chronic Respiratory Disease: No Hx Diabetes: No Hx Cardiac Disease: No Hx Renal Disease: No Hx Cirrhosis: No Hx Alcoholism: No Hx HIV/AIDS: No Hx Splenectomy or Spleen Trauma: No Other PMH: pancreatic insuffiency, left hand/finger surgery, cholecestectomy, esophageal spasms, ectopic , ovarian cyst, orsteoporosis - Social History Smoking Status: Former smoker Constitutional: Initial Vital Signs Temperature (C) 36.9 C 10/29/18 19:49 Heart Rate 88 10/29/18 19:49 Respiratory Rate 16 10/29/18 19:49 Blood Pressure 117/80 10/29/18 19:49 O2 Sat (%) 98 10/29/18 19:49 O2 Delivery Mode Room Air Allergies/Adverse Reactions: No Known Allergies Allergy (Verified 10/29/18 19:51) Home Medications: Medication Instructions Recorded Estrogens, Conjugated 05/10/18 Progesterone 10/29/18 Medical Decision Making - Diagnostics Imaging Results: Imaging Impressions Ankle X-Ray 10/29/18 19:49 Impression: Acute avulsion fragment off the dorsal navicular. Foot X-Ray 10/29/18 19:58 Impression: Acute avulsion fragment off the dorsal navicular. Images reviewed myself ED Course/Re-evaluation: 8:19 p.m.: Re-evaluation with serial exams. Reviewed the images with the patient. She is neurovascular intact. Given my usual and customary orthopedic precautions instructions. Plan will be discharge home and follow up with Orthopedics. Jose Alfredo Ferreira. Care of patient under supervision of secondary supervising physician Dr Lucas . - Data Points Medications Given: Discontinued Medications Ibuprofen (Motrin) 600 mg PO EDNOW ONE Stop: 10/29/18 20:11 Last Admin: 10/29/18 20:19 Dose: 600 mg Departure - Departure Disposition: Home, Routine, Self-Care Clinical Impression: Left navicular fracture of foot Qualifiers: Encounter type: initial encounter Fracture type: closed Fracture alignment: displaced Qualified Code(s): S92.252A - Displaced fracture of navicular [ scaphoid] of left foot, initial encounter for closed fracture Condition: Good Instructions: Foot Fracture in Adults (ED) Additional Instructions: Return to the ER immediately if you experience discoloration, have worsening pain, numbness, tingling, or any other symptoms that concern you. If you received x-rays in the emergency department today, be advised, that ligamentous , tendon, muscular, and other non-bony injury cannot be fully ruled out. Try to keep your affected extremity elevated above the level of your chest, and keep cold packs on the affected area, for the next 48 hours. Adult Pain & Fever Control: We recommend Acetaminophen (Tylenol) and Ibuprofen (Motrin,Advil) for pain and fever control. When fever is high or pain severe, both drugs can be used at the same time, but at different intervals. Please note the time differences. Your dose is: Acetaminophen 650mg every 4 to 6 hours Ibuprofen 600mg every 6 hours with food OR Note: do not take Acetaminophen with Hydrocodone (Vicodin, Lortab) or Oycodone (Percocet). These medications also contain Acetaminophen. No more than 3000mg of Acetaminophen should be taken in 24 hours (for an adult). Referrals: Negro Phillips MD [Medical Doctor] - As per Instructions
[2018-10-29] MEDS ORDERED: IBUPROFEN 600 MG TAB PO ONE (20:10)
== END 2018-10-29 20:42 | disposition home or self-care (01) ==
DX: S92.252A Displaced fracture of navicular [scaphoid] of left foot, initial encounter for closed fracture (principal); X50.1XXA Overexertion from prolonged static or awkward postures, initial encounter; Y92.9 Unspecified place or not applicable; Y93.89 Activity, other specified; Y99.9 Unspecified external cause status
CPT/HCPCS: L4386

== ENCOUNTER → 2018-11-03 | Outpatient (CLI) | payer BC | LOC: FIMAGING 10:47 | PROVIDERS: ATTEND Podiatrist Foot & Ankle Surgery | DX: S92.252D Displaced fracture of navicular [scaphoid] of left foot, subsequent encounter for fracture with routine healing (principal); S93.492A Sprain of other ligament of left ankle, initial encounter; M77.9 Enthesopathy, unspecified ==

== ENCOUNTER → 2018-12-10 | Outpatient (CLI) | payer OTHER | LOC: BMCIMAGING 10:06 | PROVIDERS: ATTEND Podiatrist Foot & Ankle Surgery | DX: S92.252D Displaced fracture of navicular [scaphoid] of left foot, subsequent encounter for fracture with routine healing (principal); M19.072 Primary osteoarthritis, left ankle and foot ==